=== PATIENT | female | born 1960 | race Caucasian/White ===

== ENCOUNTER → 2017-11-19 11:03 | Outpatient (CLI) | payer OTHER, SELFPAY ==
[2017-11-19 12:48] LABS: Anion Gap 7 (5-15); BUN 14 mg/dL (7-18); Calcium,Total 8.7 mg/dL (8.5-10.1); Chloride 108 mmol/L (98-107); Creatinine, Serum 0.74 mg/dL (0.55-1.02); EST Glomerular Filtration Rate 87 mL/min (>60); Est Glom Filt Rate - Afr Amer 105 mL/min (>60); Glucose 42 mg/dL (74-106); Sodium Level 144 mmol/L (136-145); Thyroid Stim Hormone (TSH) 0.12 uIU/mL (0.358-3.74)
== END ==
PROVIDERS: Family Provider Internal Medicine; PCP Internal Medicine; Visit Provider Internal Medicine
DX: E03.9 Hypothyroidism, unspecified (principal); I10 Essential (primary) hypertension; Z79.899 Other long term (current) drug therapy
CPT/HCPCS: 36415; 80048; 84443

== ENCOUNTER → 2018-05-06 10:30 | Outpatient (CLI) | payer OTHER, SELFPAY | PROVIDERS: Family Provider Internal Medicine; PCP Internal Medicine; Visit Provider Obstetrics & Gynecology | DX: Z12.31 Encounter for screening mammogram for malignant neoplasm of breast (principal) | CPT/HCPCS: 77063; 77067 ==

== ENCOUNTER 2019-09-21 18:13 | Emergency (ER) | payer OTHER, SELFPAY ==
[2019-09-21 18:14] VITALS: BP 165/77; PULSE 73; RESP 16; TEMP 36.1; O2SAT 100; BMI 28.1
--- NOTE | 2019-09-21 18:27 | CT_ITS ---
STUDY: CT ABDOMEN AND PELVIS WITHOUT CONTRAST REASON FOR EXAM: Female, 59 years old. RADIATION DOSAGE (If Supplied By Facility): CTDIvol = ( 12.65 ) mGy, DLP = ( 766.47 ) mGycm TECHNIQUE: Transaxial images were obtained from the dome of the diaphragm to the symphysis pubis without oral contrast, and without intravenous contrast. Sagittal and coronal images were reconstructed. Individualized dose optimization techniques were used for this CT. COMPARISON: None. FINDINGS: The visualized lung bases are unremarkable. The visualized portions of the heart are within normal limits. Normal liver. Normal gallbladder and extrahepatic biliary system. Normal spleen. Normal pancreas. Normal bilateral adrenal glands. Normal right kidney. Normal left kidney. There is a 2 mm stone in the left renal interpolar calyx. There are no ureteral stones or hydronephrosis. There is no intestinal obstruction. Normal abdominal aorta. Normal inferior vena cava. Normal retroperitoneum. There is enlarged left gonadal vein and enlarged pelvic varices related to the uterus and adnexa. Normal urinary bladder. Normal abdominal wall. Normal osseous structures. CT/Abdomen/Pelvis W IV Cont ONLY IMPRESSION: 1. No acute abdominal findings. 2. Pelvic and gonadal vein varices. This is of unknown significance. 3. 2 mm left renal nonobstructing calculus. Electronically Signed: Luz Amanda, at 20:06 EST Tel , Service support ,
--- NOTE | 2019-09-21 18:30 | ED.VIS.GI ---
History of Present Illness Chief Complaint: Abd Pain Informant: Patient - Abdominal Pain/Flank Pain Onset: Today Context: Gradual Onset Timing: Continuous Quality: Aching Location: Diffuse Current Severity: Severe Maximum Severity: Severe Worsened by: Nothing Relieved by: Nothing - Nausea/Vomiting/Emesis GI Symptom: Negative for: Nausea, Vomiting - Diarrhea/Melena/Hematochezia GI Symptom: - - last BM yest and the day before, normal. Negative for: Diarrhea, Melena, Hematochezia Associated Symptoms: Negative for: Dysuria, Frequency, Hematuria, Urgency Narrative: Patient had epigastric discomfort earlier today but she took some antiacids and it resolved. I then came back around 3 or 4 hours ago, gradually worsening and severe across her upper abdomen and now diffusely. Does not radiate. No nausea, vomiting, abnormal stools, no history of any abdominal surgeries. Prior similar symptoms: No Recent Illness/Hospitalization: No - Past Medical History (1) Hypothyroid Status: Chronic (2) Hypertension Status: Chronic Past Medical History - Allergies and Home Meds Allergies/Adverse Reactions: Allergies codeine Allergy (Verified 10/07/17 06:35) Upset Stomach Primary Care Physician: Jerica Davila MD [Primary Care Provider] - Surgical History: - - right knee meniscus 08/2019 Lives: Spouse/ Significant Other Smoking Status: Former smoker Review of Systems General: Reports: Malaise. Denies: Chills, Fever, Sweats Eyes: Denies: Visual changes - bilaterally, Diplopia ENT: Denies: Rhinorrhea, Sore throat Cardiovascular: Denies: Chest pain, Palpitations Respiratory: Denies: Dyspnea, Cough, Dyspnea on exertion Gastrointestinal: Reports: Abdominal pain. Denies: Nausea, Vomiting, Diarrhea, Melena, Hematochezia Genitourinary: Denies: Dysuria, Hematuria, Frequency Musculoskeletal: Denies: Back pain, Extremity Pain Skin: Denies: Rash, Wounds Neurological: Denies: Headache, Weakness, Numbness Physical Exam Vital Signs/Narrative: Vital Signs Temp Pulse Resp BP Pulse Ox 09/21/19 18:14 97 F L 73 16 165/77 H 100 Inital Vital Signs reviewed: Yes General: Well nourished, Well developed, Acute Distress - in pain Head: Normocephalic, Atraumatic Eyes: Perrl, EOMI ENT: Moist mucous membranes, No rhinorrhea Neck: Supple, Nontender Cardiovascular: Regular rate, Regular rhythm, No murmurs Respiratory: No distress, CTA bilaterally, Chest nontender Abdomen: Soft, Nondistended, Normal bowel sounds, Tender - LLQ mainly; diffusely uncomfortable Back: Nontender, Normal Inspection. Negative for: CVA tenderness Extremities: Nontender, No edema Skin: Normal color, No rash, No Trauma Neurological: Alert, Oriented x3, Cranial nerves II-XII grossly intact, Normal Strength, Normal Sensation Psychological: Normal Mood, - - anxious Diagnostic/Tx/Re-eval Impressions Abdomen/Pelvis CT 09/21/19 18:27 IMPRESSION: 1. No acute abdominal findings. 2. Pelvic and gonadal vein varices. This is of unknown significance. 3. 2 mm left renal nonobstructing calculus. Electronically Signed: Luz Amanda, at 20:06 EST Tel , Service support , 09/21/19 18:27 Abdomen/Pelvis W IV Cont ONLY [CT] Stat Laboratory Results 09/21/19 09/21/19 09/21/19 18:45 18:45 19:10 WBC 6.7 RBC 3.63 L Hgb 11.0 L Hct 33.6 L MCV 92.6 MCH 30.3 MCHC 32.7 RDW Std Deviation 42.5 RDW Coeff of Yareli 12.6 Plt Count 280 MPV 10.6 Immature Gran % (Auto) 0.300 Neut % (Auto) 48.2 Lymph % (Auto) 35.1 [place] % (Auto) 8.8 Eos % (Auto) 7.0 H Baso % (Auto) 0.6 Absolute Neuts (auto) 3.2 Absolute Lymphs (auto) 2.36 Nucleated RBC % 0 Sodium 133 L Potassium 4.0 Chloride 99 Carbon Dioxide 28.0 Anion Gap 6 BUN 8 Creatinine 0.97 Estim Creat Clear Calc 54.59 Est GFR (MDRD) Af Amer 76 Est GFR (MDRD) Non-Af 62 BUN/Creatinine Ratio 8.2 L Glucose 79 Calcium 9.6 Total Bilirubin 0.20 AST 22 ALT 22 Alkaline Phosphatase 76 Total Protein 7.3 Albumin 3.9 Globulin 3.4 Albumin/Globulin Ratio 1.1 Lipase 160 Urine Color Yellow Urine Clarity Sl. Cloudy Urine pH 7.0 Ur Specific [place] 1.010 Urine Protein Negative Urine Glucose (UA) Normal Urine Ketones Negative Urine Occult Blood Negative Urine Nitrite Negative Urine Bilirubin Negative Urine Urobilinogen Normal Ur Leukocyte Esterase Negative Urine RBC 0 SEEN Urine WBC 0 SEEN Ur Squamous Epith Cells 0 SEEN Urine Bacteria 0 SEEN Urine Mucus 0 SEEN - Medical Decision Making Patient was not feeling much better after IV fluids and morphine/Zofran, she was additionally given Dilaudid which really helped. Her work-up however is unremarkable. There is a nonobstructing left renal calculus but there is no blood in her urine, there is no hydronephrosis, and it is likely incidental and not causing her pain. Given the diffuse nature of the discomfort, and lack of leukocytosis, elevated liver or pancreas labs, and a normal CT, she probably was having intestinal pain/spasm, unknown cause. She states she has never had this before. She is clinically and hemodynamically stable, tolerating fluids, and I think discharging her home with close outpatient follow-up is reasonable. She is given a Bentyl prior to discharge as well as a prescription for that and Percocet in case she needs it. She is comfortable with that plan. ED Disposition - Plan for ED Patient: Disposition: Home or Assisted Living Diagnosis: Diffuse abdominal pain Instructions: ABDOMINAL PAIN, Unknown Cause, (Female) Prescriptions: Dicyclomine HCl [Bentyl] 20 mg PO . Q4-6H PRN #20 cap PRN Reason: abdominal pain Prescription Printed Oxycodone HCl/Acetaminophen [Percocet 5/325] 1 tab PO Q4H PRN 2 Days #10 tab PRN Reason: Pain Prescription Printed Referrals: Jerica Davila MD [Primary Care Provider] - 3-5 Days
[2019-09-21] MEDS: Morphine 4 MG/ML Syringe IV (18:41)
[2019-09-21] MEDS: 0.9% Normal Saline 1,000 ML 1000 ML IV (18:41)
[2019-09-21] MEDS: Ondansetron 4 MG/2 ML Vial IV (18:42)
[2019-09-21 19:00] LABS: Absolute Lymphocyte Count 2.36 X10^3/uL (0.83-4.51); Absolute Neutrophil Count 3.2 X10^3/uL (2.0-7.7); Basophil# 0.04 X10^3/uL; Basophil% 0.6 % (0-1); Eosinophil# 0.47 X10^3/uL; Hematocrit 33.6 % (37-47); Lymphocyte # 2.36 X10^3/ul (4.0); Lymphocyte % 35.1 % (19-41); Mean Corp Hgb Conc 32.7 g/dL (32-36); Mean Corpuscular Hgb 30.3 pg (27.0-32.0); Mean Corpuscular Volume 92.6 fL (81-99); Mean Platelet Vol. 10.6 fl (6.2-12.0); Monocyte# 0.59 X10^3/uL; Monocyte% 8.8 % (0-10); NRBC Flagged by Analyzer 0 % (0-5); Neutrophil # 3.24 X10^3/uL (2.7-7.7); Neutrophil % 48.2 % (47-70); Platelet Count 280 K/mm3 (150-450); RBC Distribution Width CV 12.6 % (11.6-14.6); RBC Distribution Width SD 42.5 fl (35.1-43.9); Red Blood Count 3.63 M/mm3 (4.2-5.4); White Blood Count 6.7 K/mm3 (4.4-11.0)
[2019-09-21 19:13] LABS: ALB/GLOB Ratio 1.1 RATIO (0.9-2.4); AST(SGOT) 22 U/L (15-37); Alanine Aminotransfer ALT/SGPT 22 U/L (13-56); Albumin, Serum 3.9 g/dL (3.2-5.0); Alkaline Phosphatase 76 U/L (45-117); Anion Gap 6 (5-15); BUN 8 mg/dL (7-18); BUN/Creat Ratio 8.2 RATIO (10-20); Calcium,Total 9.6 mg/dL (8.5-10.1); Chloride 99 mmol/L (98-107); Creatinine, Serum 0.97 mg/dL (0.55-1.02); EST Glomerular Filtration Rate 62 mL/min (>60); Est Glom Filt Rate - Afr Amer 76 mL/min (>60); Estimated Creatinine Clearance 54.59 ml/min; Globulin 3.4 g/dL (2.2-4.2); Glucose 79 mg/dL (74-106); Lipase 160 U/L (73-393); Protein, Total 7.3 g/dL (6.4-8.2); Sodium Level 133 mmol/L (136-145)
[2019-09-21 19:20] LABS: Bacteria 0 SEEN /hpf (None Seen); Mucous, Urine 0 SEEN /hpf (<or=2+); Red Blood Cells-Urine 0 SEEN /hpf (0-5); Squamous Epithelial Cells - UA 0 SEEN /hpf (5-10); White Blood Cells 0 SEEN /hpf (0-5)
[2019-09-21] MEDS: HYDROmorphone 1 MG/ML Syringe IV (19:23)
[2019-09-21 19:25] LABS: Color, Urine Yellow (Yellow); Glucose, Dipstick Normal (Normal); Ketone-Dipstick Negative (Negative); Leukocyte Esterase-Dipstick Negative /ul (Negative); Nitrite-Dipstick Negative (Negative); Occult Blood-Urine Negative /ul (Negative); Protein-Dipstick Negative (Negative); Urine Bilirubin Dipstick Negative (Negative); Urine Clarity Sl. Cloudy (Clear); Urine Urobilinogen Normal (Normal)
[2019-09-21] MEDS: Dicyclomine 10 MG Capsule 20 MG PO (20:24)
[2019-09-21 20:44] VITALS: RESP 16
== END 2019-09-21 20:44 | disposition home or self-care (01) ==
PROVIDERS: Emergency Provider Emergency Medicine; Family Provider Internal Medicine; PCP Internal Medicine
DX: R10.84 Generalized abdominal pain (principal); I10 Essential (primary) hypertension; E03.9 Hypothyroidism, unspecified; Z79.899 Other long term (current) drug therapy; Z87.891 Personal history of nicotine dependence
CPT/HCPCS: 74177; 80053; 81001; 83690; 85025; 96361; 96374; 96375; 99284; J7030; Q9967; A4216; J2405

== ENCOUNTER → 2023-04-14 | Outpatient (CLI) | payer SELFPAY ==
--- NOTE | 2023-04-14 07:45 | MRI_ITS ---
STUDY: MRI LUMBAR SPINE WITHOUT CONTRAST REASON FOR EXAM: Female, 62 years old. LOW BACK PAIN,TRAUMA TECHNIQUE: Standardized fat and water weighted pulse sequences were obtained in the sagittal and axial planes. COMPARISON: None FINDINGS: T12-L1: Normal endplates. Normal disc height, hydration and morphology. Normal bilateral facet joints. Normal central canal and bilateral lateral recesses. Normal bilateral intervertebral neural foramina. Normal lumbar lordosis. There is no substantial scoliosis. Normal conus medullaris that terminates at L1 L1-2: Normal endplates. Normal disc height, hydration and morphology. Normal bilateral facet joints. Normal central canal and bilateral lateral recesses. Normal bilateral intervertebral neural foramina. L2-3: Normal endplates. Normal disc height, hydration and morphology. Normal bilateral facet joints. Normal central canal and bilateral lateral recesses. Normal bilateral intervertebral neural foramina. L3-4: Normal endplates. Normal disc height, hydration and morphology. Mild facet arthropathy and thickening of ligamenta flava. Normal central canal and bilateral lateral recesses. Mild bilateral neural foraminal encroachment. L4-5: Grade 1 spondylolisthesis Normal endplates. Normal disc height, desiccation and mild bulging disc osteophyte complex. Facet arthropathy and thickening of ligamenta flava. Normal central canal and bilateral lateral recesses. Moderate bilateral neural foraminal stenosis exaggerated by shortened pedicles. L5-S1: Normal endplates. Normal disc height, desiccation and minimal annular bulge. Mild facet arthropathy. Normal central canal and bilateral lateral recesses. Mild bilateral neural foraminal encroachment. Normal visualized sacral ala. Normal visualized paraspinous soft tissue structures. MRI/Spine Lumbar (Routine) IMPRESSION: No evidence for acute fracture or other significant bony pathology.. Spinal stenosis at L5-S1 and slightly more pronounced at L4-5 secondary to disc disease and facet arthropathy. Electronically Signed: López Larose MD at 20:32 EDT ,
== END | disposition home or self-care (01) ==
PROVIDERS: PCP Internal Medicine; Referring Provider Internal Medicine; Visit Provider Internal Medicine
DX: M54.50 Low back pain, unspecified (principal); V89.2XXA Person injured in unspecified motor-vehicle accident, traffic, initial encounter
CPT/HCPCS: 72148

== ENCOUNTER 2024-08-06 16:04 | Emergency (ER) | payer OTHER, SELFPAY ==
[2024-08-06 16:04] VITALS: BP 162/94; PULSE 71; RESP 19; TEMP 36.3; O2SAT 100
[2024-08-06 16:18] VITALS: BMI 28.3
--- NOTE | 2024-08-06 16:18 | CT_ITS ---
EXAM: CT MAXILLOFACIAL WITHOUT INTRAVENOUS CONTRAST CLINICAL INDICATION: trauma TECHNIQUE: Helically acquired images were obtained of the face without intravenous contrast. This CT exam was performed using one or more of the following dose reduction techniques: automated exposure control, adjustment of the mA and/or kV according to patient size, and/or use of iterative reconstruction technique. RADIATION DOSE: CTDIvol = 29.38 mGy, DLP = 554.80 mGy-cm COMPARISON: No relevant prior studies available. FINDINGS: BONES/JOINTS: Fracture of the right inferior orbital wall. A right inferior rectus muscle doesn''t herniate through the fracture site. However, there does not appear to be entrapment. Degenerative changes of the mandibular condyles. SOFT TISSUES: Right periorbital subcutaneous emphysema with right lateral extraconal air. Fracture of the right lateral orbital wall. No entrapment. Blood or fluid in the right maxillary sinus. No focal subcutaneous swelling. ORBITS: Mild inflammatory stranding in the right retrobulbar region may represent a small retrobulbar hematoma. Both globes are unremarkable. Extraocular muscles are normal. Retrobulbar fat appears unremarkable. SINUSES: There is sinus disease. MASTOID AIR CELLS: Unremarkable as visualized. Clear. DENTAL: No acute findings. No periodontal osseous erosion. NASAL CAVITY/SEPTUM: Nasal bone appears intact. CT/Sinus/Facial Bone IMPRESSION: 1. Mild inflammatory stranding in the right retrobulbar region may represent a small retrobulbar hematoma. 2. Right periorbital subcutaneous emphysema with right lateral extraconal air. Fracture of the right lateral orbital wall. No entrapment. Blood or fluid in the right maxillary sinus. 3. Fracture of the right inferior orbital wall. A right inferior rectus muscle doesn''t herniate through the fracture site. However, there does not appear to be entrapment. 4. There is sinus disease. Electronically Signed: Mejia Dos Santos MD at 17:28 EST ,
--- NOTE | 2024-08-06 16:18 | CT_ITS ---
STUDY: CT BRAIN WITHOUT CONTRAST REASON FOR EXAM: Female, 64 years old. trauma Individualized dose optimization techniques were used for this CT. TECHNIQUE: Transaxial CT imaging of the brain was performed without administration of intravenous contrast material. COMPARISON: 09.30.17 FINDINGS: There are calcifications around the carotid artery. These are noted in the cavernous carotid arteries. Normal calvarium. Normal soft tissues. There is mild cerebral atrophy with widening of the extra-axial spaces and ventricular dilatation. There are areas of decreased attenuation within the white matter tracts of the supratentorial brain, consistent with microvascular disease changes. Normal basal ganglia and thalami. Normal brainstem. There is mild cerebellar atrophy. There is no intracranial hemorrhage. There are no findings of an acute ischemic infarction. There is sinus disease. Right periorbital subcutaneous emphysema with right lateral extraconal air. Fracture of the right lateral orbital wall. No entrapment. Blood or fluid in the right maxillary sinus. Degenerative changes of the mandibular condyles. ASPECTS Score for Acute Strokes: 10/10 CT/Brain/Head without Contrast IMPRESSION: There is sinus disease. Right periorbital subcutaneous emphysema with right lateral extraconal air. Fracture of the right lateral orbital wall. No entrapment. Blood or fluid in the right maxillary sinus. Degenerative changes of the mandibular condyles. Chronic involutional changes of the brain. Electronically Signed: Mejia Dos Santos MD at 17:25 EST ,
--- NOTE | 2024-08-06 16:20 | EDS_ITS ---
HPI HPI - Fall History of Present Illness Chief Complaint: Fall Informant: patient Pain/Injury Pain Location: head, face and upper extremity Narrative Narrative: 64-year-old female states she had 2 alcoholic beverages and then went outside to blow leaves, and she stumbled and fell on her driveway while doing this, hitting her head on the pavement without loss of consciousness. She also injured her right shoulder she is not sure exactly the mechanism, but she is having trouble abducting. She does not have pain in her shoulder if she does not move it. She takes no anticoagulants. She denies any other injuries. [facility] Medical History Hypothyroid HTN (hypertension) Home Medications ?Medication ?Instructions ?Recorded ?Last Taken ?Type levothyroxine 112 mcg tablet 112 mcg PO DAILY 09/30/17 10/07/17 History lisinopril 10 mg tablet 10 mg PO DAILY #30 tabs 10/07/17 Unknown Rx paroxetine HCl 20 mg tablet 20 mg PO DAILY 10/07/17 10/07/17 History dicyclomine 10 mg capsule 20 mg (2 x 10 mg) PO . Q4-6H PRN 09/21/19 Unknown Rx abdominal pain #20 caps Allergy/AdvReac Type Severity Reaction Status Date / Time codeine Allergy Upset Verified 10/07/17 06:35 Stomach Social History Smoking Status: Former smoker alcohol intake: never ROS ROS ED Constitutional Constitutional ED: Denies chills or fever(s) Eyes Eyes: Denies change in vision or diplopia ENT ENT ED: Reports facial pain; Denies ear pain, epistaxis or rhinorrhea Cardiovascular Cardiovascular: Denies chest pain or palpitations Respiratory/Chest Respiratory/Chest: Denies cough or dyspnea Gastrointestinal Gastrointestinal: Denies abdominal pain, diarrhea, melena, nausea or vomiting Genitourinary Genitourinary ED: Denies dysuria or hematuria Musculoskeletal Musculoskeletal: Reports extremity pain; Denies back pain or neck pain Integumentary Denies abscess, Abrasions, laceration or rash Neurologic Neurologic: Reports headache(s); Denies confusion, paresthesias or weakness EXAM Physical Exam Const Vital Signs: 08/06/24 16:04 08/06/24 16:15 Temperature 97.4 F L Temperature Source Temporal Pulse Rate 71 Respiratory Rate 19 H Respiratory Depth Normal Respiratory Pattern Normal Blood Pressure 162/94 H Blood Pressure Mean 116 Pulse Ox 100 Oxygen Delivery Method Room Air Room Air Positive well nourished and well developed General Appearance ED: well developed and NAD HEENT Reports TM's clear and nasal mucous membranes and turbinates normal HEENT Narrative: Right periorbital ecchymosis and swelling without proptosis or enophthalmos, with pain and tenderness in the right maxilla but not the superior orbital brim. Midface is stable. Nasal bone is nontender zygomatic arches are nontender. No Ferguson sign. No CSF otorhinorrhea. No hemotympanum. trauma Face and Sinus: facial tenderness Tympanic Membrane ED: Yes TM's clear Eyes PERRL and EOMs intact bilaterally Visual Acuity: other Other Details: no entrapment or pain with extraocular movements Neck full ROM and supple General: Negative for tenderness Chest Wall inspection of chest normal and palpation of chest normal Chest: symmetrical chest wall rise; Negative for crepitus or tenderness Resp normal respiratory effort and clear to auscultation bilaterally Percussion: other equal BS bilat Cardio no murmurs Rate: regular rate Rhythm: regular rhythm GI normal to inspection, nondistended, normoactive bowel sounds, soft to palpation and non-tender Back/Spine normal ROM Cervical Spine: Negative for cervical spine tenderness Thoracic Spine / Upper Back: Negative for thoracic spinal tenderness Lumbar Spine / Lower Back: Negative for lumbar spinal tenderness Extremity normal to inspection Extremity Narrative: Patient holding right upper extremity in position of comfort neutral, abducted to her side. No tenderness in the clavicle, acromion, acromioclavicular joint, or the proximal humerus when in this position. She has very limited abduction due to pain. General Extremety ED: Negative for tenderness Neuro oriented x3, CN's II-XII intact bilaterally, moves all extremities, no focal motor deficits and no sensory deficits noted [place] Coma Scale: document GCS findings Spontaneous Obeys Commands Oriented 15 Sensorium / Orientation: awake and alert Psych mental status grossly normal and thought process normal Skin no wounds Lesions: no lesions Rashes: no rashes MDM MDM MDM Narrative Medical decision making narrative: 5 view x-ray series of the right shoulder to my interpretation is grossly unremarkable for dislocation or major fracture, or acromioclavicular dissociation. I question on a couple of views if there may be a nondisplaced greater tuberosity fracture, but radiology is calling it negative. In the differential is a rotator cuff injury. She states she had a repair long time ago. I am going to place her in a sling because she is having a significant amount of difficulty moving it and recommended she follow-up with orthopedics as an outpatient. She is neurovascular intact distally. With regards to the CT of her head and face I reviewed those images and report which I agree with. She has blood in the right maxillary sinus as well as lateral and inferior orbital wall fractures. The radiologist states that the inferior rectus muscle is not herniating or entrapped. The CT also shows what may be a very small amount of retrobulbar hemorrhage. She does not have proptosis or severe pain, and she is not on anticoagulants. Clinically I tried to do a better exam due to the amount of periorbital edema and subcutaneous emphysema that she has limiting her ability to open her eye. The patient opened her eye and we did a repeat exam. She is able to look down without pain or diplopia or obvious clinical entrapment. Her other chalk movement appear to be intact. I discussed that with Dr. Hutson on for ophthalmology, he agrees with close out patient follow- up tomorrow. I attempted to discuss with otolaryngology but no one is on-call for unassigned patients today, and there is also no one on-call for plastics. I am obtaining visual acuities, placing the patient in a sling, and discharging her home with ophthalmology and otolaryngology (or plastics, patient can choose) follow-up there. Radiography Diagnostic Testing: Clinical Impression(s) from Imaging Studies Brain CT 08/06/24 16:18 IMPRESSION: There is sinus disease. Right periorbital subcutaneous emphysema with right lateral extraconal air. Fracture of the right lateral orbital wall. No entrapment. Blood or fluid in the right maxillary sinus. Degenerative changes of the mandibular condyles. Chronic involutional changes of the brain. Electronically Signed: Mejia Dos Santos MD at 17:25 EST , Facial/Sinus 08/06/24 16:18 IMPRESSION: 1. Mild inflammatory stranding in the right retrobulbar region may represent a small retrobulbar hematoma. 2. Right periorbital subcutaneous emphysema with right lateral extraconal air. Fracture of the right lateral orbital wall. No entrapment. Blood or fluid in the right maxillary sinus. 3. Fracture of the right inferior orbital wall. A right inferior rectus muscle doesn''t herniate through the fracture site. However, there does not appear to be entrapment. 4. There is sinus disease. Electronically Signed: Mejia Dos Santos MD at 17:28 EST , Shoulder X-Ray 08/06/24 16:55 IMPRESSION: There are no acute findings of the shoulder. Electronically Signed: Mejia Dos Santos MD at 17:42 EST , Management Discussion w/another healthcare provider: [employer] (Dr. Hutson ophthalmology) Discharge Plan Triage Chief Complaint: Fall ED Provider: Andre Jordan Dx/Rx/DC Orders Clinical Impression: Injury of shoulder, right, Closed fracture of right orbit, Fall from slip, trip, or stumble Instructions: Facial Fracture, ED Shoulder Pain, Uncertain Cause Prescriptions: No Action levothyroxine 112 MCG tablet 112 mcg PO DAILY paroxetine HCl 20 MG tablet 20 mg PO DAILY lisinopril 10 MG tablet 10 mg PO DAILY Qty: 30 0RF dicyclomine 10 MG capsule 20 mg PO . Q4-6H PRN (Reason: abdominal pain) Qty: 20 0RF Primary Care Provider: Jerica Davila Referrals: Lawson Busby MD [Med Staff - Active Staff] - (option for facial fracture) Zander Dawn MD [Med Staff - Active Staff] - (option for facial fracture) Artur Douglas MD [Med Staff - Active Staff] - As soon as possible Artur Hutson MD [Med Staff - Active Staff] - 08/07/24 (call 8am for appt same day) Print Language: [place] Citizen Disposition Disposition: Home, Self Care
--- NOTE | 2024-08-06 16:55 | RAD_ITS ---
STUDY: XR Shoulder Min 2 Views REASON FOR EXAM: Female, 64 years old. injury TECHNIQUE: XR Shoulder 6 Views RIGHT COMPARISON: None. FINDINGS: There is mild degenerative arthrosis of the glenohumeral articulation. There is degenerative arthrosis of the acromioclavicular joint without inferior osseous spur formation. Normal acromion. Normal humeral head and visualized proximal humerus. The soft tissue structures are unremarkable. Normal visualized pulmonary apex. RAD/Shoulder min 2 Views IMPRESSION: There are no acute findings of the shoulder. Electronically Signed: Mejia Dos Santos MD at 17:42 EST ,
[2024-08-06 18:54] VITALS: BP 135/81; PULSE 72; RESP 16; TEMP 36.6; O2SAT 99
== END 2024-08-06 18:55 | disposition home or self-care (01) ==
PROVIDERS: Emergency Provider Emergency Medicine; PCP Internal Medicine; Visit Provider Emergency Medicine
DX: S02.40CA Maxillary fracture, right side, initial encounter for closed fracture (principal); S02.841A Fracture of lateral orbital wall, right side, initial encounter for closed fracture; I10 Essential (primary) hypertension; Z87.891 Personal history of nicotine dependence; E03.9 Hypothyroidism, unspecified; W01.0XXA Fall on same level from slipping, tripping and stumbling without subsequent striking against object, initial encounter
CPT/HCPCS: 70450; 70486; 73030; 99283